=== PATIENT | female | born 1990 | race African-American/Black ===

== ENCOUNTER 2022-09-26 11:02 | Emergency (ER) | payer OTHER ==
[2022-09-26 11:18] VITALS: BP 108/63; PULSE 89; RESP 18; TEMP 98.6; BMI 33.9
[2022-09-26 12:22] LABS: BASO % 0.7 % (0-2.0); HEMATOCRIT 36.5 % (32.4-45.2); HEMOGLOBIN 11.8 GM/dL (10.7-15.3); LYMPH % 19.1 % (8-40); MCH 26.8 pg (25.7-33.7); MCHC 32.3 g/dl (32.0-36.0); MEAN PLT VOLUME 8.7 fl (7.5-11.1); MONO % 12.2 % (3.8-10.2); PLATELET COUNT 218 10^3/uL (134-434); WHITE BLOOD COUNT 6.3 K/mm3 (4.0-10.0)
[2022-09-26 13:33] LABS: POTASSIUM 4.1 mmol/L (3.5-5.1)
[2022-09-26 13:34] LABS: CALCIUM 9.1 mg/dL (8.5-10.1)
[2022-09-26 13:38] LABS: CREATININE 0.7 mg/dL (0.55-1.3)
== END 2022-09-26 14:31 | disposition home or self-care (01) ==
LOC: JERFT 11:02 → JER 11:02 → JERFT 14:31
DX: S87.82XA Crushing injury of left lower leg, initial encounter (principal); W23.1XXA Caught, crushed, jammed, or pinched between stationary objects, initial encounter
CPT/HCPCS: 36415; 73590-TC-LT-FY; 73590-TC-RT-FY; 80048; 85025; 93971-TC; 99285-25